=== PATIENT | male | born 1970 | race Caucasian/White ===

== ENCOUNTER 2018-02-13 13:13 | Day surgery (SDC) | payer OTHER, BC ==
[~2018-02-13 13:13] MED LIST: LACTATED RINGERS 1,000 ML IV ONE
[2018-02-13] MEDS ORDERED: LACTATED RINGERS 1,000 ML IV ONE (14:15)
[2018-02-13] MEDS ORDERED: fentaNYL 250 MCG/5 ML VIAL IVP ONE (14:48)
[2018-02-13] MEDS ORDERED: MIDAZOLAM 2 MG/2 ML VIAL IVP ONE (14:48)
[2018-02-13 16:09] VITALS: BP 132/87
== END 2018-02-13 13:14 | disposition home or self-care (01) ==
LOC: SDS 13:13
PROVIDERS: ATTEND Internal Medicine
PROC: 0DBL8ZX Excision of Transverse Colon, Via Natural or Artificial Opening Endoscopic, Diagnostic (ICD-10-PCS; 2018-02-13)
PROC: 0DBN8ZX Excision of Sigmoid Colon, Via Natural or Artificial Opening Endoscopic, Diagnostic (ICD-10-PCS; principal; 2018-02-13 14:30)
DX: Z12.11 Encounter for screening for malignant neoplasm of colon (principal); K57.30 Diverticulosis of large intestine without perforation or abscess without bleeding; K64.8 Other hemorrhoids; D12.3 Benign neoplasm of transverse colon; K63.5 Polyp of colon; Z80.0 Family history of malignant neoplasm of digestive organs
CPT/HCPCS: 45380; J3010; J7120

== ENCOUNTER 2018-10-17 08:59 | Outpatient (CLI) | payer BC ==
[2018-10-17 18:15] LABS: ALBUMIN 4.4 g/dL (3.2-5.5); ALBUMIN/GLOBULIN RATIO 1.5 (1.0-2.2); BILIRUBIN,TOTAL 0.9 mg/dL (0.2-1.0); CALCIUM 9.3 mg/dL (8.5-10.3); CREATININE 0.8 mg/dL (0.6-1.2); TOTAL PROTEIN 7.3 g/dL (6.7-8.2)
[2018-10-17 18:21] LABS: HGB - HEMOGLOBIN 15.9 g/dL (14.0-18.0); MEAN CORPUSCULAR HEMOGLOBIN 30.8 pg (27.0-31.0); MEAN CORPUSCULAR HGB CONC 33.5 g/dL (32.0-36.0); MEAN CORPUSCULAR VOLUME 91.8 fL (80.0-94.0); MEAN PLATELET VOLUME 8.2 fL (7.4-11.4); RED BLOOD COUNT 5.16 10^6/uL (4.70-6.10); RED CELL DISTRIBUTION WIDTH 13.9 % (12.0-15.0); WHITE BLOOD COUNT 5.4 x10^3/uL (4.8-10.8)
[2018-10-17 19:16] LABS: HB2 TOTAL 17.4 g/dL; HEMOGLOBIN A1C 0.59 g/dL; HEMOGLOBIN A1C % 5.3 % (4.6-6.2)
== END 2018-10-17 09:00 | disposition home or self-care (01) ==
LOC: LAB.F 08:59
PROVIDERS: ATTEND Internal Medicine
DX: R63.4 Abnormal weight loss (principal)
CPT/HCPCS: 36415; 80053; 83036; 84443; 85027

== ENCOUNTER 2018-11-03 12:42 | Outpatient (CLI) | payer BC | END 2018-11-03 12:43 | disposition home or self-care (01) | LOC: DI 12:42 | PROVIDERS: ATTEND Internal Medicine | DX: R01.1 Cardiac murmur, unspecified (principal) | CPT/HCPCS: 93306 ==

== ENCOUNTER 2019-11-07 08:00 | Outpatient (CLI) | payer BC | END 2019-11-07 23:59 | disposition home or self-care (01) | LOC: LAB.R 08:00 | PROVIDERS: ATTEND Family Medicine | DX: J11.1 Influenza due to unidentified influenza virus with other respiratory manifestations (principal) | CPT/HCPCS: 81599 ==

== ENCOUNTER 2020-10-08 08:00 | Outpatient (CLI) | payer BC | END 2020-10-08 23:59 | disposition home or self-care (01) | LOC: LAB.S 08:00 | PROVIDERS: ATTEND Physician Assistant Medical | DX: R50.9 Fever, unspecified (principal); J02.9 Acute pharyngitis, unspecified; Z20.822 Contact with and (suspected) exposure to COVID-19 ==

== ENCOUNTER 2021-09-01 08:00 | Outpatient (CLI) | payer BC | END 2021-09-01 08:01 | disposition home or self-care (01) | LOC: LAB.R 08:00 | PROVIDERS: ATTEND Physician Assistant Medical | DX: U07.1 COVID-19 (principal) | CPT/HCPCS: 87070; 87275; 87276 ==

== ENCOUNTER 2021-09-01 08:00 | Outpatient (CLI) | payer BC | END 2021-09-01 23:59 | LOC: LAB 08:00 | PROVIDERS: ATTEND Physician Assistant Medical | DX: U07.1 COVID-19 (principal) ==

== ENCOUNTER 2022-09-17 10:16 | Outpatient (CLI) | payer BC ==
--- NOTE | 2022-09-17 11:06 | CT Report ---
PROCEDURE: ABDOMEN/PELVIS WO INDICATIONS: HEMATURIA TECHNIQUE: Noncontrast 5 mm thick sections acquired from the diaphragms to the symphysis. 5 mm coronal and sagi ttal reformats were then performed. For radiation dose reduction, the following was used: automated exposure control, adjustment of mA and/or kV according to patient size. COMPARISON: None. FINDINGS: Image quality: Excellent. ABDOMEN: Lung bases: Lung bases are clear. Heart size is normal. Solid organs: Liver and spleen are normal in size. Gallbladder has normal CT appearance. Pancreas is normal in contours. No adrenal nodules. Kidneys are symmetric in size and both demonstrated a multilobulated morphology. There is probably a subcentimeter cortical cyst in the posterior right kidney. No hydronephrosis or nephrolithiasis. No a symmetric perinephric inflammation. Ureters are normal. Peritoneum and bowel: Near pancolonic diverticulosis. No acute diverticulitis. Stomach and small bow el loops are normal. No free fluid or air. Nodes and vessels: No retroperitoneal or mesenteric adenopathy by size criteria. Aorta and inferior vena cava are normal in caliber. Miscellaneous: No ventral hernias. PELVIS: Genitourinary: Bladder wall thickness is normal. No bladder calculi or visible mass. Mildly enlarge d prostate gland. Miscellaneous: No inguinal hernias or adenopathy. Bones: No suspicious bony lesions. No vertebral body compression fractures. Near complete disc heig ht loss L5-S1. IMPRESSION: 1. No evidence of urinary calcification or obstructive uropathy. 2. Mild prostatomegaly. 3. Multilobulated renal contours. No definite solid mass is not seen, but one is not entirely exclude d. Consider renal protocol CT or ultrasound as an outpatient. 4. Colonic diverticulosis without acute diverticulitis. Reviewed by: Sera Dawkins MD on 09/17/2022 10:04 AM [facility] Approved by: Sera Dawkins MD on 09/17/2022 10:04 AM [facility] Station ID: [id number]
== END 2022-09-17 10:17 | disposition home or self-care (01) ==
LOC: DI 10:16
PROVIDERS: ATTEND Registered Nurse
DX: N40.0 Benign prostatic hyperplasia without lower urinary tract symptoms (principal); K57.30 Diverticulosis of large intestine without perforation or abscess without bleeding; R31.9 Hematuria, unspecified